=== PATIENT | female | born 1965 | race African-American/Black ===

== ENCOUNTER 2017-06-16 21:52 | Emergency (ER) | payer SELFPAY ==
[2017-06-16] MEDS ORDERED: cloNIDine 0.1 MG TAB ONE (22:16)
[2017-06-16] MEDS ORDERED: Ketorolac Tromethamine 60 MG/2 ML VIAL ONE (22:16)
== END 2017-06-16 22:47 | disposition home or self-care (01) ==
LOC: BURERS 21:52
DX: I10 Essential (primary) hypertension (principal); F41.9 Anxiety disorder, unspecified; F32.9 Major depressive disorder, single episode, unspecified; Z79.899 Other long term (current) drug therapy
CPT/HCPCS: 96372; J1885

== ENCOUNTER 2018-05-10 19:52 | Emergency (ER) | payer SELFPAY ==
--- NOTE | 2018-05-10 21:09 | RAD ---
FOUR VIEWS RIGHT KNEE: 05/10/18 HISTORY: Right knee pain for two days. FINDINGS: For views of the right knee shows no evidence of acute fracture or dislocation. No degenerative read es are seen. No knee effusion is seen. IMPRESSION: Unremarkable exam. POS: [facility]
== END 2018-05-10 22:23 | disposition short-term general hospital (02) ==
LOC: BURERS 19:52
DX: M79.651 Pain in right thigh (principal); I10 Essential (primary) hypertension; F41.9 Anxiety disorder, unspecified; F32.9 Major depressive disorder, single episode, unspecified; Z79.899 Other long term (current) drug therapy
CPT/HCPCS: 36415; 85379

== ENCOUNTER 2019-07-19 14:43 | Emergency (ER) | payer SELFPAY ==
[2019-07-19 15:02] LABS: #Basophils 0.1 thou/uL (0.0-0.2); #Lymphocytes 1.6 thou/uL (1.20-3.40); #Monocytes 0.7 thou/uL (0.11-0.59); #Neutrophils 5.4 thou/uL (1.40-6.50); %Basophils 1.8 % (0.0-1.0); %Eosinophils 0.5 % (0.0-10.0); %Lymphocytes 20.4 % (21.0-51.0); %Neutrophils 68.3 % (42.0-75.0); Mean Corpuscular HGB CONC 32.5 g/dL (32.0-36.0); Mean Corpuscular Hemoglobin 29.3 pg (27.0-31.0); Mean Corpuscular Volume 90.3 fL (78.0-98.0); Mean Platelet Volume 11.9 fL (7.4-10.4); Platelet Count 221 thou/uL (130-400); RBC Distribution Width 11.5 % (11.5-14.5); Red Blood Cell (RBC) Count 4.43 mill/uL (4.20-5.40); White Blood Cell (WBC) Count 7.9 thou/uL (4.8-10.8)
[2019-07-19 15:07] LABS: PTT 32.7 SEC (22.9-36.1); Prothrombin Time 13.1 SEC (12.0-14.7)
[2019-07-19 15:16] LABS: ALT (SGPT) 22 U/L (8-55); AST (SGOT) 24 U/L (5-34); Albumin 4.5 g/dL (3.5-5.0); Alkaline Phosphatase 80 U/L (40-110); Anion Gap 14 mmol/L (10-20); BUN (Urea Nitrogen) 10 mg/dL (9.8-20.1); Bilirubin, Total 0.5 mg/dL (0.2-1.2); Calc. Creatinine Clearance 0 mL/min (70-130); Calcium 9.9 mg/dL (7.8-10.44); Carbon Dioxide 25 mmol/L (22-29); Chloride 104 mmol/L (98-107); Estimated GFR-MDRD 90; Globulin 3.5 g/dL (2.4-3.5); Glucose 105 mg/dL (70-105); Potassium 3.6 mmol/L (3.5-5.1); Sodium 139 mmol/L (136-145)
--- NOTE | 2019-07-19 20:24 | RAD ---
PORTABLE CHEST: 07/19/19 An AP portable film at 1420 is compared with a 09/22/17 study. Mild cardiomegaly is about the same as before. The aorta is tortuous as usual. There is no congestive change, pleural effusion or edema. The lungs are clear. IMPRESSION: Stable exam showing cardiomegaly but little oil changer time. POS: HOME
--- NOTE | 2019-07-20 07:28 | CT ---
CT head noncontrast HISTORY: Stroke alert. Left facial numbness. Slurred speech. COMPARISON: 05/07/2017. FINDINGS: There is no evidence of acute intracranial hemorrhage or infarct. The ventricles appear nor mal in size, shape and position. There is no mass effect or shift of midline structures. Visualized paranasal sinuses remain well-aerated. IMPRESSION: Normal exam.
== END 2019-07-19 15:30 | disposition short-term general hospital (02) ==
LOC: BURERS 14:43
DX: I63.9 Cerebral infarction, unspecified (principal); I10 Essential (primary) hypertension; F41.9 Anxiety disorder, unspecified; F32.9 Major depressive disorder, single episode, unspecified; Z79.899 Other long term (current) drug therapy
CPT/HCPCS: 36415; 36416; 70450; 71045; 80053; 84484; 85025; 85610; 85730; 96374; J2997

== ENCOUNTER 2024-12-09 11:06 | Emergency (ER) | payer BC ==
[2024-12-09] MEDS ORDERED: Ketorolac Tromethamine 30 MG (1 mL) VIAL ONE (11:30)
[2024-12-09] MEDS ORDERED: Prochlorperazine 10 MG/2 ML VIAL ONE (11:30)
== END 2024-12-09 13:10 | disposition home or self-care (01) ==
LOC: BURERS 11:06
DX: G43.909 Migraine, unspecified, not intractable, without status migrainosus (principal); I10 Essential (primary) hypertension; Z86.73 Personal history of transient ischemic attack (TIA), and cerebral infarction without residual deficits
CPT/HCPCS: 96374; 96375; J0780; J1885